=== PATIENT | female | born 1965 | race Caucasian/White ===

== ENCOUNTER → 2017-01-04 | Day surgery (SDC) | payer BC, OTHER ==
[2016-12-29 08:15] VITALS: BMI 26.0
[~2017-01-04] VITALS: Ht 177.8 cm; Wt 83.2 kg
[~2017-01-04] MED LIST: ALBU18002 INH; BUDE3CAP14 PO; LIDOCAINE HCL 2% 2 ML VIAL (20MG/ML) ONE; MIDAZOLAM HCL 1 MG/ML 2ML VIAL ONE; MISCCAP80 PO; NITR-5 PO; ONDANSETRON INJ 2 MG/ML 2 ML VIAL ONE; PROPOFOL IV EMULSION 10 MG/ML 20 ML VIAL IV ONE; SODIUM CHLORIDE 0.9% 500ML 500 ML IV ONE; THY/120 PO
[2017-01-04 13:06] VITALS: Ht 177.8 cm; Wt 83.2 kg
--- NOTE | 2017-01-04 13:20 | Endo History and Physical ---
History & Physical Date of Service: Jan 04, 2017. Chief Complaint: ULCER OF THE ILEUM Referring Physician: DR JOHNNY LAMB History of Present Illness 51 yo CF who presents for colonoscopy secondary to ulcer of the ileum. Past Surgical History Hx Cardiac Surgery: No Hx Internal Defibrillator: No Hx Pacemaker: No Hx Abdominal Surgery: No Hx of Implantable Prosthesis: No Hx Post-Op Nausea and Vomiting: No Hx Cancer Surgery: Yes ([facility]) Hx Thoracic Surgery: No Hx Orthopedic: No Hx Urinary Tract Surgery: No Family History None Social History Smoking Status: Never Smoker Hx Substance Use: No Hx Alcohol Use: No Allergies Coded Allergies: Penicillins (Verified Allergy, Mild, HIVES, 12/29/16) Sulfa Drugs (Verified Allergy, Mild, HIVES, 12/29/16) Current Medications Reported Home Medications Medications Dose Route/Sig Max Daily Dose Days Date Category Macrobid (Nitrofurantoin Macrocrystals) 100 Mg Cap 100 Mg PO QAM 12/29/16 Reported Entocort Ec (Budesonide) 3 Mg Cap 3 Cap PO QAM 12/29/16 Reported Proair Respiclick (Albuterol Sulfate) 108 Mcg/Act Aer 2-4 Puffs INH Q4H PRN 08/24/16 Reported Probiotic (Probiotic Product) 1 Cap Cap 1 Tab PO QAM 08/24/16 Reported [place] Thyroid (Thyroid) 120 Mg Tab 1 Tab PO QAM 08/24/16 Reported Vital Signs Weight (Kilograms): 83.18 Height (Feet): 5 Height (Inches): 10 Date Time Temp Pulse Resp B/P Pulse Ox O2 Delivery O2 Flow Rate FiO2 01/04/17 13:04 36.9 82 18 145/78 98 Room Air Physical Exam General Appearance: WD/WN, no apparent distress Respiratory/Chest: Auscultation: breath sounds normal Cardiovascular: Heart Auscultation: RRR Abdomen: Bowel Sounds: normal Inspection & Palpation: soft, non-distended, no tenderness, guarding & rebound Assessment and Plan Assessment: 51 yo CF who presents for colonoscopy secondary to ulcer of the ileum. Plan: Proceed with colonoscopy.
--- NOTE | 2017-01-04 13:49 | GI REPORT ---
Procedure Date: 01/04/2017 1:27 PM Procedure: Colonoscopy Indications: Ulcers of terminal ileum Medicines: Monitored Anesthesia Care Complications: No immediate complications. Estimated Blood Loss: Estimated blood loss: none. Procedure: Pre-Anesthesia Assessment: - Prior to the procedure, a History and Physical was performed, and patient medications and allergies were reviewed. The patient's tolerance of previous anesthesia was also reviewed. The risks and benefits of the procedure and the sedation options and risks were discussed with the patient. All questions were answered, and informed consent was obtained. Prior Anticoagulants: The patient has taken no previous anticoagulant or antiplatelet agents. ASA Grade Assessment: II - A patient with mild systemic disease. After reviewing the risks and benefits, the patient was deemed in satisfactory condition to undergo the procedure. After I obtained informed consent, the scope was passed under direct vision. Throughout the procedure, the patient's blood pressure, pulse, and oxygen saturations were monitored continuously. The scope was introduced through the anus and advanced to the terminal ileum. The colonoscopy was performed without difficulty. The patient tolerated the procedure well. The quality of the bowel preparation was good. The terminal ileum, ileocecal valve, appendiceal orifice, and rectum were photographed. Findings: The terminal ileum contained a few two mm ulcers. No bleeding was present. Biopsies were taken with a cold forceps for histology. The colon (entire examined portion) appeared normal. Several random biopsies were obtained with cold forceps for histology. Non-bleeding internal hemorrhoids were found during retroflexion. The hemorrhoids were small. Impression: - A few ulcers in the terminal ileum. Biopsied. - The entire examined colon is normal. - Non-bleeding internal hemorrhoids. - Several random biopsies were obtained. Recommendation: - Resume previous diet. - Continue present medications. - Repeat colonoscopy for surveillance based on pathology results. - Return to primary care physician as previously scheduled. Jermaine MarcanoDO 01/04/2017 1:48:56 PM This report has been signed electronically. Note Initiated On: 01/04/2017 1:27 PM I attest to the content of the Intraoperative Record and orders documented therein, exceptions below
--- NOTE | 2017-01-04 13:50 | Discharge Instructions ---
Endoscopy Patient Instructions Date / Procedure(s) Performed Jan 04, 2017. Colonoscopy Allergy Information Coded Allergies: Penicillins (Verified Allergy, Mild, HIVES, 12/29/16) Sulfa Drugs (Verified Allergy, Mild, HIVES, 12/29/16) Discharge Date / Findings Jan 04, 2017. Ulcers in Terminal ileum Medication Instructions OK to resume all medications today as prescribed. Reported Home Medications Medications Dose Route/Sig Max Daily Dose Days Date Category Macrobid (Nitrofurantoin Macrocrystals) 100 Mg Cap 100 Mg PO QAM 12/29/16 Reported Entocort Ec (Budesonide) 3 Mg Cap 3 Cap PO QAM 12/29/16 Reported Proair Respiclick (Albuterol Sulfate) 108 Mcg/Act Aer 2-4 Puffs INH Q4H PRN 08/24/16 Reported Probiotic (Probiotic Product) 1 Cap Cap 1 Tab PO QAM 08/24/16 Reported [place] Thyroid (Thyroid) 120 Mg Tab 1 Tab PO QAM 08/24/16 Reported Provider Instructions Activity Restrictions - No exercising or heavy lifting for 24 hours. - Do not drink alcohol the day of the procedure. - Do not drive a car or operate machinery until the day after the procedure. - Do not make any important decisions or sign important papers in 24 hours after the procedure. Following Day: - Return to full activity which may include returning to work/school. Diet Start your diet with liquids and light foods (jello, soup, juice, toast). Then eat your usual diet if not nauseated. Treatment For Common After Affects For mild abdominal pain, bloating, or excessive gas: - Rest - Eat lightly - Lie on right side Follow-Up Information Follow-up with DR JOHNNY LAMB as scheduled Anesthesia Information What You Should Know You have had a procedure that required some medicine to reduce anxiety and discomfort. This treatment is called moderate sedation. After receiving the treatment, you may be sleepy, but you will be able to breathe on your own. The effects of the treatment may last for several hours. Follow these instructions along with Activity/Diet recommendations noted above: * Do NOT do anything where dizziness or clumsiness would be dangerous. * Rest quietly at home today, then you can be up and about tomorrow. * Have a responsible person stay with you the rest of today. * You may have had an I.V. today. If so, you may take the dressing off later today. Recommendations Call your doctor if: * Trouble breathing * Continuous vomiting for more than 24 hours * Temperature above 101 degrees * Severe abdominal pain or bloating * Pain not relieved by pain medicine ordered * There is increased drainage or redness from any incision * A large amount of rectal bleeding greater than 2-3 tablespoons. (If you had a polyp/s removed or have hemorrhoids, a small amount of blood - from the rectum is to be expected.) * You have any unanswered questions or concerns. IN THE EVENT OF A SERIOUS EMERGENCY, GO TO THE NEAREST EMERGENCY ROOM Your discharge instructions were prepared by provider Jermaine Marcano. Patient Instructions Signature Page Brittany Lazcano Patient (or Guardian) Signature/Date: I have read and understand the instructions given to me by my caregivers. Caregiver/RN/Doctor Signature/Date: The above-named patient and/or guardian has received patient instructions on this date. + Original Patient Signature Page (only) stays with chart. Please make copy for patient.
--- NOTE | 2017-01-04 14:16 | Anesthesiology Progress Note ---
Anesthesia Post Op Note Date & Time Jan 04, 2017 at 14:17 Vital Signs Pain Intensity: 0 Vital Signs Past 12 Hours Date Time Temp Pulse Resp B/P Pulse Ox O2 Delivery O2 Flow Rate FiO2 01/04/17 14:02 87 16 119/61 98 Room Air 01/04/17 13:47 84 16 101/53 96 Room Air 01/04/17 13:04 36.9 82 18 145/78 98 Room Air Notes Mental Status: alert / awake / arousable, participated in evaluation Pt Amnestic to Procedure: Yes Nausea / Vomiting: adequately controlled Pain: adequately controlled Airway Patency, RR, SpO2: stable & adequate BP & HR: stable & adequate Hydration State: stable & adequate Anesthetic Complications: no major complications apparent
[2017-01-04 14:17] VITALS: BP 118/80; PULSE 72; O2SAT 72
== END | disposition home or self-care (01) ==
LOC: C.GI 12:29
PROVIDERS: ATTEND Internal Medicine
DX: K63.3 Ulcer of intestine (principal); K64.8 Other hemorrhoids; K50.00 Crohn's disease of small intestine without complications; J45.909 Unspecified asthma, uncomplicated; Z90.710 Acquired absence of both cervix and uterus; Z88.0 Allergy status to penicillin; Z88.2 Allergy status to sulfonamides; Z68.26 Body mass index [BMI] 26.0-26.9, adult

== ENCOUNTER → 2017-09-23 | Day surgery (SDC) | payer OTHER ==
[2017-09-13 13:40] VITALS: Ht 177.8 cm; Wt 93.2 kg
[~2017-09-23] VITALS: Ht 177.8 cm; Wt 93.2 kg
[~2017-09-23] MED LIST changes: +BUDE1CAP6 PO; -BUDE3CAP14 PO; -MIDAZOLAM HCL 1 MG/ML 2ML VIAL ONE; -MISCCAP80 PO; -NITR-5 PO; -ONDANSETRON INJ 2 MG/ML 2 ML VIAL ONE; -SODIUM CHLORIDE 0.9% 500ML 500 ML IV ONE
--- NOTE | 2017-09-23 13:22 | Endo History and Physical ---
History & Physical Date of Service: Sep 23, 2017. Chief Complaint: ULCER OF ILEUM Referring Physician: DR. LAMB History of Present Illness 51 yo CF who presents for colonoscopy secondary to ulcer of the ileum. Past Surgical History Hx Cardiac Surgery: No Hx Internal Defibrillator: No Hx Pacemaker: No Hx Abdominal Surgery: No Hx Post-Op Nausea and Vomiting: No Hx Cancer Surgery: Yes ([facility]SO) Hx Thoracic Surgery: No Hx Orthopedic: No Hx Urinary Tract Surgery: No Family History None Social History Smoking Status: Never Smoker Hx Substance Use: No Hx Alcohol Use: No Allergies Coded Allergies: Penicillins (Verified Allergy, Mild, HIVES, 09/13/17) Sulfa Drugs (Verified Allergy, Mild, HIVES, 09/13/17) Current Medications Reported Home Medications Medications Dose Route/Sig Max Daily Dose Days Date Category Entocort Ec (Budesonide) 3 Mg Cap 3 Cap PO QAM 12/29/16 Reported Proair Respiclick (Albuterol Sulfate) 108 Mcg/Act Aer 2-4 Puffs INH Q4H PRN 08/24/16 Reported [place] Thyroid (Thyroid) 120 Mg Tab 1 Tab PO QAM 08/24/16 Reported Vital Signs Weight (Kilograms): 93.18 Height (Feet): 5 Height (Inches): 10 Date Time Temp Pulse Resp B/P (MAP) Pulse Ox O2 Delivery O2 Flow Rate FiO2 09/23/17 13:02 36.6 80 16 146/73 (97) 97 Room Air Physical Exam General Appearance: WD/WN, no apparent distress Respiratory/Chest: Auscultation: breath sounds normal Cardiovascular: Heart Auscultation: RRR Abdomen: Bowel Sounds: normal Inspection & Palpation: soft, non-distended, no tenderness, guarding & rebound Assessment and Plan Assessment: 51 yo CF who presents for colonoscopy secondary to ulcer of the ileum. Plan: Proceed with colonoscopy.
--- NOTE | 2017-09-23 14:19 | Discharge Instructions ---
Endoscopy Patient Instructions Date / Procedure(s) Performed Sep 23, 2017. Colonoscopy Allergy Information Coded Allergies: Penicillins (Verified Allergy, Mild, HIVES, 09/13/17) Sulfa Drugs (Verified Allergy, Mild, HIVES, 09/13/17) Discharge Date / Findings Sep 23, 2017. Internal hemorrhoids Medication Instructions OK to resume all medications today as prescribed Reported Home Medications Medications Dose Route/Sig Max Daily Dose Days Date Category Entocort Ec (Budesonide) 3 Mg Cap 3 Cap PO QAM 12/29/16 Reported Proair Respiclick (Albuterol Sulfate) 108 Mcg/Act Aer 2-4 Puffs INH Q4H PRN 08/24/16 Reported [place] Thyroid (Thyroid) 120 Mg Tab 1 Tab PO QAM 08/24/16 Reported Provider Instructions Activity Restrictions - No exercising or heavy lifting for 24 hours. - Do not drink alcohol the day of the procedure. - Do not drive a car or operate machinery until the day after the procedure. - Do not make any important decisions or sign important papers in 24 hours after the procedure. Following Day: - Return to full activity which may include returning to work/school. Diet Start your diet with liquids and light foods (jello, soup, juice, toast). Then eat your usual diet if not nauseated. Treatment For Common After Affects For mild abdominal pain, bloating, or excessive gas: - Rest - Eat lightly - Lie on right side Follow-Up Information Follow-up with DR. LAMB as scheduled Anesthesia Information What You Should Know You have had a procedure that required some medicine to reduce anxiety and discomfort. This treatment is called moderate sedation. After receiving the treatment, you may be sleepy, but you will be able to breathe on your own. The effects of the treatment may last for several hours. Follow these instructions along with Activity/Diet recommendations noted above: * Do NOT do anything where dizziness or clumsiness would be dangerous. * Rest quietly at home today, then you can be up and about tomorrow. * Have a responsible person stay with you the rest of today. * You may have had an I.V. today. If so, you may take the dressing off later today. Recommendations Call your doctor if: * Trouble breathing * Continuous vomiting for more than 24 hours * Temperature above 101 degrees * Severe abdominal pain or bloating * Pain not relieved by pain medicine ordered * There is increased drainage or redness from any incision * A large amount of rectal bleeding greater than 2-3 tablespoons. (If you had a polyp/s removed or have hemorrhoids, a small amount of blood - from the rectum is to be expected.) * You have any unanswered questions or concerns. IN THE EVENT OF A SERIOUS EMERGENCY, GO TO THE NEAREST EMERGENCY ROOM Your discharge instructions were prepared by provider Jermaine Marcano. Patient Instructions Signature Page Brittany Lazcano Patient (or Guardian) Signature/Date: I have read and understand the instructions given to me by my caregivers. Caregiver/RN/Doctor Signature/Date: The above-named patient and/or guardian has received patient instructions on this date. + Original Patient Signature Page (only) stays with chart. Please make copy for patient.
--- NOTE | 2017-09-23 14:24 | GI REPORT ---
Procedure Date: 09/23/2017 1:36 PM Procedure: Colonoscopy Indications: Ulcer of terminal ileum Medicines: Monitored Anesthesia Care Complications: No immediate complications. Estimated Blood Loss: Estimated blood loss: none. Procedure: Pre-Anesthesia Assessment: - Prior to the procedure, a History and Physical was performed, and patient medications and allergies were reviewed. The patient's tolerance of previous anesthesia was also reviewed. The risks and benefits of the procedure and the sedation options and risks were discussed with the patient. All questions were answered, and informed consent was obtained. Prior Anticoagulants: The patient has taken no previous anticoagulant or antiplatelet agents. ASA Grade Assessment: II - A patient with mild systemic disease. After reviewing the risks and benefits, the patient was deemed in satisfactory condition to undergo the procedure. After I obtained informed consent, the scope was passed under direct vision. Throughout the procedure, the patient's blood pressure, pulse, and oxygen saturations were monitored continuously. The scope was introduced through the anus and advanced to the terminal ileum. The colonoscopy was performed without difficulty. The patient tolerated the procedure well. The quality of the bowel preparation was good. The terminal ileum, ileocecal valve, appendiceal orifice, and rectum were photographed. Findings: The perianal and digital rectal examinations were normal. Non-bleeding internal hemorrhoids were found during retroflexion. The hemorrhoids were small. Impression: - Non-bleeding internal hemorrhoids. - No specimens collected. Recommendation: - Resume previous diet. - Continue present medications. - Repeat colonoscopy in 10 years for surveillance. - Return to primary care physician as previously scheduled. Jermaine Marcano DO 09/23/2017 2:23:37 PM This report has been signed electronically. Note Initiated On: 09/23/2017 1:36 PM I attest to the content of the Intraoperative Record and orders documented therein, exceptions below
--- NOTE | 2017-09-23 14:28 | Anesthesiology Progress Note ---
Anesthesia Post Op Note Date & Time Sep 23, 2017 at 14:28 Vital Signs Pain Intensity: 0 Vital Signs Past 12 Hours Date Time Temp Pulse Resp B/P (MAP) Pulse Ox O2 Delivery O2 Flow Rate FiO2 09/23/17 14:17 74 18 123/64 (83) 97 Room Air 09/23/17 13:02 36.6 80 16 146/73 (97) 97 Room Air Notes Mental Status: alert / awake / arousable, participated in evaluation Pt Amnestic to Procedure: Yes Nausea / Vomiting: adequately controlled Pain: adequately controlled Airway Patency, RR, SpO2: stable & adequate BP & HR: stable & adequate Hydration State: stable & adequate Anesthetic Complications: no major complications apparent
[2017-09-23 14:47] VITALS: BP 125/77; PULSE 70; O2SAT 97
== END | disposition home or self-care (01) ==
LOC: C.GI 12:25
PROVIDERS: ATTEND Internal Medicine
DX: K63.3 Ulcer of intestine (principal); K64.8 Other hemorrhoids; J45.909 Unspecified asthma, uncomplicated; Z85.42 Personal history of malignant neoplasm of other parts of uterus; Z88.0 Allergy status to penicillin; Z88.2 Allergy status to sulfonamides